=== PATIENT | female | born 1975 ===

== ENCOUNTER 2020-01-05 11:37 | Day surgery (SDC) | payer SELFPAY ==
[~2020-01-05 11:37] MED LIST: LACTATED RINGERS 1,000 ML IV SCH; MIDAZOLAM 2 MG/2 ML INJ IV NR; SCOPOLAMINE TRANSDERMAL PATCH 72 HR TD NR
--- NOTE | 2020-01-05 12:33 | Anesthesia Consultation ---
Anesthesia Consult and Med Hx Date of service: 01/05/20 - Airway Anesthetic Teeth Evaluation: Good ROM Head & Neck: Adequate Mental/Hyoid Distance: Adequate Mallampati Class: Class I Intubation Access Assessment: Good - Pulmonary Exam CTA: Yes - Cardiac Exam Cardiac Exam: RRR - Pre-Operative Health Status ASA Pre-Surgery Classification: ASA2 Proposed Anesthetic Plan: General - Pulmonary Hx Smoking: No Hx Respiratory Symptoms: No - Cardiovascular System Hx Hypertension: No - Central Nervous System CVA: No - Gastrointestinal Hx Gastroesophageal Reflux Disease: No - Endocrine Hx Renal Disease: No Hx Liver Disease: No Hx Insulin Dependent Diabetes: No Hx Non-Insulin Dependent Diabetes: No Hx Thyroid Disease: No - Other Systems Hx Obesity: Yes (BMI 31) - Additional Comments Anesthesia Medical History Comments: No prior anesthetics. Molar . Will send CBC, T&S.
[2020-01-05] MEDS ORDERED: fentaNYL 100 MCG/2 ML INJ IV PRN (12:34)
--- NOTE | 2020-01-05 12:34 | Anesthesia Day of Surgery ---
Anesthesia Day of Surgery - Day of Surgery Patient Examined: Yes Patient H&P Reviewed: Yes Patient is NPO: Yes
[2020-01-05 13:03] LABS: Hematocrit 40.6 % (30.3-42.9); Hemoglobin 13.4 gm/dl (10.1-14.3); Mean Corpuscular HGB Conc 33 % (30-34); Mean Corpuscular Volume 85 fl (79-97); Red Blood Count 4.77 M/mm3 (3.65-5.03); Red Cell Distribution Width 16.4 % (13.2-15.2)
[2020-01-05] MEDS ORDERED: propofoL 200 MG/20 ML VIAL IV ONE (13:04)
[2020-01-05] MEDS ORDERED: MIDAZOLAM 2 MG/2 ML INJ ONE (13:04)
[2020-01-05] MEDS ORDERED: fentaNYL 100 MCG/2 ML INJ ONE (13:04)
[2020-01-05] MEDS ORDERED: LIDOCAINE MPF (2%) 20 MG/1 ML VIAL 5 ML ONE (13:04)
[2020-01-05 13:17] LABS: Platelet Count 107 K/mm3 (140-440)
[2020-01-05] MEDS ORDERED: KETOROLAC 30 MG/1 ML INJ ONE (14:00)
[2020-01-05] MEDS ORDERED: ONDANSETRON 4 MG/2 ML INJ ONE (14:00)
[2020-01-05] MEDS ORDERED: dexAMETHasone 20 MG/5 ML VIAL ONE (14:00)
[2020-01-05] MEDS ORDERED: LACTATED RINGERS 1,000 ML ONE (14:10)
--- NOTE | 2020-01-05 14:27 | Post Operative Note ---
Date of procedure: 01/05/20 Pre-op diagnosis: SAB, possible molar Post-op diagnosis: same (path pending) Procedure: Indication: Patient is a 44-year-old -0-0-3 at 11.6 weeks by her last menstrual period who is here today for suction D&C completion. Patient with no IUP or gestational sac noted but a 6.3 cm cystic irregularity was noted in the endometrial cavity on ultrasound. Her last quant was over 96,000. As a result there is a suspicion for a molar . Final diagnosis will be per pathology. Findings: Positive products of conception were suctioned. Uterus felt globular and anteverted bimanual exam. Procedure: Patient taken to the operating room and prepped and draped in usual fashion. A ring forcep placed on the anterior lip of the cervix. An 8 [place] suction catheter was chosen. Suction curette placed in the endometrial cavity. Suction curettage was performed until no more products of conception were able to be suctioned out and no more active bleeding was noted. Bimanual exam was done at the end of the case and the uterus palpated firm. Ring forcep removed from at lip of the cervix and good hemostasis noted throughout. The procedure was concluded at this point. Patient tolerated procedure well. All instrument and lap counts were correct. Patient taken to the recovery in stable condition. Anesthesia: GETA Surgeon: LISSETTE WILSON Estimated blood loss: minimal Pathology: list (POCs) Specimen disposition: to lab Condition: stable Disposition: PACU
--- NOTE | 2020-01-05 14:30 | Discharge Summary ---
Providers - Providers Date of discharge: 01/05/20 Attending physician: LISSETTE WILSON Primary care physician: FINANCIAL SERVICE REPRESENTATIVE Hospitalization Reason for admission: other (surgery) Hospital course: PT had suction D&C for SAB, possible molar preg. Final Dx per path Condition at discharge: Stable Disposition: DC-01 TO HOME OR SELFCARE Plan - Provider Discharge Summary Activity: routine Diet: routine Instructions: routine Additional instructions: [] Smoking cessation referral if applicable(refer to patient education folder for contact #) [] Refer to [facility] Booklet Call your doctor immediately for: * Fever > 100.5 * Heavy vaginal bleeding ( >1 pad per hour) * Severe persistent headache * Shortness of breath * Reddened, hot, painful area to leg or breast * Drainage or odor from incision. * Keep incision clean and dry at all times and follow doctor's instructions regarding bathing/showering - Follow up plan Follow up: PRIMARY CARE, [Primary Care Provider] - 7 Days Forms: Outpatient Surgery DC Inst.
[2020-01-05 14:52] VITALS: BP 112/57
--- NOTE | 2020-01-05 15:42 | Post Anesthesia Evaluation ---
- Post Anesthesia Evaluation Patient Participated: Yes Airway Patent: Yes Stable Respiratory Function: Yes Nausea/Vomiting: No Temp > 96.8F: Yes Pain Manageable: Yes Adequeate Hydration: Yes Anesthesia Complications: No
== END 2020-01-05 15:35 | disposition home or self-care (01) ==
LOC: OR 11:37 → EDBD 11:37 → OR 15:35
PROVIDERS: ATTEND Obstetrics & Gynecology
DX: O03.9 Complete or unspecified spontaneous abortion without complication (principal); Z79.899 Other long term (current) drug therapy
CPT/HCPCS: 36415; 59812; 84443; 85027; 86850; 86900; 86901; 88305; J1100; J1885; J2250; J2405; J2704; J3010; J7120

== ENCOUNTER 2020-01-08 21:23 | Emergency (ER) | payer SELFPAY ==
[2020-01-08 22:09] VITALS: BP 152/73
[2020-01-08 22:09] LABS: Hematocrit 31.6 % (30.3-42.9); Hemoglobin 10.6 gm/dl (10.1-14.3); Mean Corpuscular HGB Conc 34 % (30-34); Mean Corpuscular Volume 86 fl (79-97); Platelet Count 196 K/mm3 (140-440); Red Blood Count 3.68 M/mm3 (3.65-5.03); Red Cell Distribution Width 16.5 % (13.2-15.2)
[2020-01-08 22:32] LABS: Alanine Aminotransferase 19 units/L (7-56); Albumin 4.3 g/dL (3.9-5); BUN/Creatinine Ratio 28; Blood Urea Nitrogen 14 mg/dL (7-17); Calcium 9.6 mg/dL (8.4-10.2); Hemolysis Index 9
[2020-01-08] MEDS ORDERED: ONDANSETRON 4 MG/2 ML INJ IV ONE (22:41)
[2020-01-08] MEDS ORDERED: MORPHINE 4 MG/1 ML INJ IV ONE (22:41)
[2020-01-08] MEDS ORDERED: LACTATED RINGERS 1,000 ML IV ONE (22:41)
[2020-01-08 23:51] LABS: Bacteria,Urine 1+ /HPF (Negative); Bilirubin,Urine NEG (Negative); Blood,Urine LG (Negative); Color,Urine Straw (Yellow); Protein,Urine <15 mg/dL mg/dL (Negative); Urobilinogen,Urine < 2.0 mg/dL (<2.0)
[2020-01-08 23:54] LABS: RBC,Urine > 182.0 /HPF (0.0-6.0)
--- NOTE | 2020-01-09 00:34 | Emergency Department Report ---
ED Female HPI - General Chief complaint: Vaginal Bleeding Stated complaint: VAGINAL BLEEDING Source: patient Mode of arrival: Ambulatory Limitations: Language Barrier - History of Present Illness Initial comments: Patient is a A1 44-year-old female who is 3 days s/p D&C procedure for the removal of molar who presents to the ED with complaints of acute onset persistent severe pelvic pain with heavy vaginal bleeding for the last 3 days. Patient states that the pain has worsened such that despite taking Tylenol as was instructed the pain has been persistent and severe and that the bleeding is also been very heavy with blood clots. Patient also complaints of left-sided headache and left arm pain. Patient denies dizziness, syncope, chest pain, shortness of breath, change in vision, fever, chills, dysuria, urinary frequency and urgency, vaginal discharge or low back pain, nausea, vomiting or diarrhea. MD Complaint: vaginal bleeding, pelvic pain, other (s/p D&C procedure for removal of molar 3 days ago) -: Sudden, days(s) (3) Location: suprapubic, other (vaginal) Severity: severe Severity scale (0 -10): 8 Quality: cramping, sharp Consistency: constant Improves with: none Worsens with: none Are you Now?: No Associated Symptoms: denies other symptoms, vaginal bleeding, abdominal pain (suprapubic pain). denies: vaginal discharge, nausea/vomiting, fever/chills, headaches, loss of appetite, dysuria, hematuria, rash, seizure, shortness of breath, syncope, weakness - Related Data Sexually active: Yes : 4 Para: 3 A: 1 Previous Rx's Medication Instructions Recorded Last Taken Type tiZANidine [Zanaflex 4mg TAB] 4 mg PO Q8H PRN #12 tablet 01/09/20 Unknown Rx traMADoL [Ultram] 50 mg PO Q6HR PRN #12 tablet 01/09/20 Unknown Rx Allergies Allergy/AdvReac Type Severity Reaction Status Date / Time No Known Allergies Allergy Unverified 01/04/20 11:00 ED Review of Systems ROS: Stated complaint: VAGINAL BLEEDING Other details as noted in HPI Constitutional: denies: chills, fever Eyes: denies: eye pain, eye discharge, vision change ENT: denies: ear pain, throat pain Respiratory: denies: cough, shortness of breath, wheezing Cardiovascular: denies: chest pain, palpitations Endocrine: no symptoms reported Gastrointestinal: abdominal pain (suprapubic pain), nausea. denies: vomiting, diarrhea Genitourinary: denies: urgency, dysuria, discharge Musculoskeletal: back pain (lower). denies: joint swelling, arthralgia Skin: denies: rash, lesions Neurological: headache. denies: weakness, paresthesias Psychiatric: denies: anxiety, depression Hematological/Lymphatic: denies: easy bleeding, easy bruising ED Past Medical Hx - Past Medical History Previous Medical History?: Yes Hx Hypertension: No Hx Liver Disease: No Hx Renal Disease: No Hx Headaches / Migraines: Yes - Surgical History Past Surgical History?: Yes Additional Surgical History: Molar with D&C Wednesday01/05/20 - Social History Smoking Status: Never Smoker - Medications Home Medications: Home Medications Medication Instructions Recorded Confirmed Last Taken Type tiZANidine [Zanaflex 4mg TAB] 4 mg PO Q8H PRN #12 tablet 01/09/20 Unknown Rx traMADoL [Ultram] 50 mg PO Q6HR PRN #12 tablet 01/09/20 Unknown Rx ED Physical Exam - General Limitations: Language Barrier General appearance: alert, in no apparent distress - Head Head exam: Present: atraumatic, normocephalic, normal inspection - Eye Eye exam: Present: normal appearance, PERRL, EOMI Pupils: Present: normal accommodation - ENT ENT exam: Present: normal exam, normal orophraynx, mucous membranes moist, TM's normal bilaterally, normal external ear exam - Neck Neck exam: Present: normal inspection, full ROM. Absent: tenderness - Respiratory Respiratory exam: Present: normal lung sounds bilaterally. Absent: respiratory distress, wheezes, rales, stridor, chest wall tenderness - Cardiovascular Cardiovascular Exam: Present: regular rate, normal rhythm, normal heart sounds. Absent: bradycardia, tachycardia, systolic murmur, diastolic murmur, rubs, gallop - GI/Abdominal GI/Abdominal exam: Present: soft, tenderness (suprapubic tenderness), normal bowel sounds. Absent: guarding, rebound, hyperactive bowel sounds, hypoactive bowel sounds, organomegaly - Extremities Exam Extremities exam: Present: normal inspection, normal capillary refill - Back Exam Back exam: Present: normal inspection, full ROM. Absent: tenderness, CVA tenderness (R), muscle spasm, paraspinal tenderness - Neurological Exam Neurological exam: Present: alert, oriented X3, CN II-XII intact, normal gait, reflexes normal - Psychiatric Psychiatric exam: Present: normal affect, normal mood - Skin Skin exam: Present: warm, dry, intact, normal color. Absent: rash ED Course Vital Signs 01/08/20 21:42 Temperature 98.9 F Pulse Rate 93 H Respiratory 18 Rate Blood Pressure 152/73 O2 Sat by Pulse 100 Oximetry ED Medical Decision Making - Lab Data Result diagrams: 01/08/20 22:03 01/08/20 22:03 - Medical Decision Making This is a A1 44-year-old female who is 3 days s/p D&C procedure for the removal of molar who presents to the ED with complaints of acute onset persistent severe pelvic pain with heavy vaginal bleeding for the last 3 days. Patient states that the pain has worsened such that despite taking Tylenol as was instructed the pain has been persistent and severe and that the bleeding is also been very heavy with blood clots. Patient also complains of left-sided headache and left arm pain. In the ED, patient is alert and oriented x3 and is not in distress with stable vital signs. Lab test results were reviewed and are all nonactionable including urinalysis which only shows significant hematuria. Patient was treated for pain and also received antiemetics and LR 1 L IV bolus. On reevaluation, patient's pain resolved as well as her headache. Patient is hemodynamically stable and will discharge home on medications for pain and advised to follow-up with FLIGHT SIMULATOR TEACHER physician in 7 to 10 days for reevaluation. Patient was advised to return to the ED immediately if symptoms get worse. - Differential Diagnosis UTI; Post-op infection; Anemia; Ovarian cyst Critical care attestation.: If time is entered above; I have spent that time in minutes in the direct care of this critically ill patient, excluding procedure time. ED Disposition Clinical Impression: Postoperative vaginal bleeding Abdominal pain Qualifiers: Abdominal location: lower abdomen, unspecified Qualified Code(s): R10.30 - Lower abdominal pain, unspecified Tension-type headache Qualifiers: Headache chronicity pattern: episodic headache Intractability: not intractable Qualified Code(s): G44.219 - Episodic tension-type headache, not intractable Disposition: DC- TO HOME OR SELFCARE Is pt being admited?: No Does the pt Need Aspirin: No Condition: Stable Instructions: Dysfunctional Uterine Bleeding (ED), Abdominal Pain (ED), Acute Headache (ED) Additional Instructions: [place] medicamentos con alimentos, desi muchos lquidos y mantenga un descanso plvico completo sin actividades fsicas extenuantes ni levantar objetos pesados. Jase un seguimiento con rodriguez mdico obstetra / gineclogo en 7 a 10 laughlin para la reevaluacin. Regrese al servicio de urgencias de inmediato si los sntomas empeoran Prescriptions: traMADoL [Ultram] 50 mg PO Q6HR PRN #12 tablet PRN Reason: Pain tiZANidine [Zanaflex 4mg TAB] 4 mg PO Q8H PRN #12 tablet PRN Reason: Muscle Spasm Referrals: ANASTASIIA PEDERSON MD [Staff Physician] - 7-10 days Forms: Work/School Release Form(ED) Time of Disposition: 00:31 Print Language: NAURUAN
== END 2020-01-09 00:45 | disposition home or self-care (01) ==
LOC: ED 21:23
DX: G44.219 Episodic tension-type headache, not intractable (principal); N99.820 Postprocedural hemorrhage of a genitourinary system organ or structure following a genitourinary system procedure
CPT/HCPCS: 36415; 80053; 81001; 83690; 84702; 85027; 99283; J2270; J2405; J7120